=== PATIENT | female | born 1965 | race Caucasian/White ===

== ENCOUNTER 2019-01-10 13:21 | Outpatient (CLI) | payer BC ==
--- NOTE | 2019-01-10 15:45 | ULT ---
ULTRASOUND THYROID: HISTORY: Thyroid nodule: COMPARISON: None. FINDINGS: Real-time, johnson scale, and color evaluation of the thyroid was performed. The isthmus measures 3 mm in AP dimension. The right lobe measures 4.9 x 2 x 1.6 cm. The left lobe measures 5.1 x 1.8 x 1.4 c m. There are colloid cysts in both lobes of the thyroid. No suspicious nodule. IMPRESSION: Bilateral colloid cysts. No suspicious nodule. POS: [facility]
--- NOTE | 2019-01-11 08:43 | MMO ---
BILATERAL MAMMOGRAMS: HISTORY: Screening mammography. COMPARISON: 10/30/2015 and 09/04/2014 FINDINGS: Heterogeneously dense fibroglandular tissue. Within the mid lateral aspect of the right breast, a pa rtially obscured, oval, isodense mass measures up to 1.5 x 1.3 cm in greatest diameter on today's manuel dy and has enlarged since the previous studies. No other new dominant mass or suspicious calcificati ons. The study was evaluated with the assistance of computer aided detection. IMPRESSION: BI-RADS Category 0-Incomplete exam. Further imaging evaluation needed. The patient will be recalled for additional diagnostic views of t he right breast. Sonogram should also be scheduled for better evaluation. POS: [facility]
== END 2019-01-10 13:22 | disposition home or self-care (01) ==
LOC: SCSMAMMO 13:21
PROVIDERS: ATTEND Family Medicine
DX: Z12.31 Encounter for screening mammogram for malignant neoplasm of breast (principal); E04.1 Nontoxic single thyroid nodule
CPT/HCPCS: 76536; 77067

== ENCOUNTER 2019-03-16 14:04 | Outpatient (CLI) | payer BC ==
--- NOTE | 2019-03-16 15:14 | MMO ---
Right Breast MAMMO Unilat Diag DDI RT+ELIZABET. CLINICAL HISTORY: Patient is 53 years old and is seen for diagnostic exam. The patient has the following family history of breast cancer: mother, at age 50. VIEWS: The views performed were: . FILMS COMPARED: The present examination has been compared to prior imaging studies performed at [facility] on 01/10/2019, and at [facility] on 03/16/2019. MAMMOGRAM FINDINGS: There are scattered fibroglandular densities. Mass in the right breast likely corresponds to a portion of the cystic area on US. There are no suspicious masses, suspicious calcifications, or new areas of architectural distortion. IMPRESSION: THERE IS NO MAMMOGRAPHIC EVIDENCE OF MALIGNANCY. A ROUTINE FOLLOW-UP MAMMOGRAM IN 1 YEAR IS RECOMMENDED. THE RESULTS OF THIS EXAM WERE SENT TO THE PATIENT. ACR BI-RADS Category 2 - Benign finding MAMMOGRAPHY NOTE: 1. A negative mammogram report should not delay a biopsy if a dominant of clinically suspicious mass is present. 2. Approximately 10% to 15% of breast cancers are not detected by mammography. 3. Adenosis and dense breasts may obscure an underlying neoplasm.
--- NOTE | 2019-03-16 15:18 | ULT ---
RIGHT BREAST ULTRASOUND: HISTORY: Abnormal mammogram. CORRELATION: Mammograms from today and 01/10/2019. FINDINGS: Sonographic evaluation of the inner right breast demonstrates a tubular fluid collection/cyst, measur ing about 2 cm in largest dimension. A smaller adjacent cyst is seen. There is a tiny, echogenic fo cus, likely corresponding with calcifications seen on the mammogram. IMPRESSION: BI-RADS category 2-Benign findings. Return to annual mammographic screening. POS: OFF
== END 2019-03-16 14:05 | disposition home or self-care (01) ==
LOC: BICMAMMO 14:04
PROVIDERS: ATTEND Family Medicine
DX: N63.10 Unspecified lump in the right breast, unspecified quadrant (principal); Z80.3 Family history of malignant neoplasm of breast
CPT/HCPCS: G0279

== ENCOUNTER 2023-03-06 09:38 | Outpatient (CLI) | payer OTHER | END 2023-03-06 09:39 | disposition home or self-care (01) | LOC: TBSIIMAG 09:38 | PROVIDERS: ATTEND Neurological Surgery | DX: M47.26 Other spondylosis with radiculopathy, lumbar region (principal); M48.07 Spinal stenosis, lumbosacral region | CPT/HCPCS: 72110; 72148 ==

== ENCOUNTER 2025-10-20 19:09 | Inpatient (IN) | payer BC ==
[~2025-10-20 19:09] MED LIST: Iopamidol 370 76% 100 ML VIAL ONE
[2025-10-20 19:37] LABS: #Basophils 0.04 10x3/uL (0.0-0.2); #Eosinophils 0.03 10x3/uL (0.0-0.7); #Monocytes 0.73 10x3/uL (0.11-0.59); #Neutrophils 5.10 10x3/uL (1.40-6.50); %Basophils 0.5 % (0.0-1.0); %Eosinophils 0.4 % (0.0-10.0); %Lymphocytes 24.3 % (21.0-51.0); %Monocytes 9.3 % (0.0-10.0); %Neutrophils 65.2 % (42.0-75.0); Hematocrit 45.3 % (36.0-47.0); Hemoglobin 14.4 g/dL (12.0-16.0); Mean Corpuscular Hemoglobin 24.4 pg (27.0-31.0); Mean Corpuscular Volume 76.9 fL (78.0-98.0); Platelet Count 221 10x3/uL (130-400); Red Blood Cell (RBC) Count 5.89 mill/uL (4.20-5.40); White Blood Cell (WBC) Count 7.82 10x3/uL (4.8-10.8)
[2025-10-20] MEDS ORDERED: Ondansetron PF 4 MG/2 ML Vial ONE (19:41)
[2025-10-20] MEDS ORDERED: Droperidol 5 MG/2 ML VIAL ONE (19:49)
[2025-10-20 20:02] LABS: ALT (SGPT) 37 U/L (Less than 34); AST (SGOT) 44 U/L (11-34); Albumin 5.0 g/dL (3.1-4.5); Alkaline Phosphatase 96 U/L (40-110); Anion Gap 28 mmol/L (10-20); BUN (Urea Nitrogen) 11 mg/dL (9.8-20.1); Bilirubin, Total 0.8 mg/dL (0.3-1.2); Calc. Creatinine Clearance 0 mL/min (70-130); Calcium 10.8 mg/dL (7.8-10.44); Carbon Dioxide 13 mmol/L (22-29); Chloride 103 mmol/L (98-107); Globulin 3.2 g/dL (2.4-3.5); Glucose 107 mg/dL (70-105); Lipase 17 U/L (8-78); Magnesium 1.8 mg/dL (1.6-2.6); Potassium 4.0 mmol/L (3.5-5.1); Sodium 140 mmol/L (136-145)
[2025-10-20] MEDS ORDERED: Famotidine/PF 20 mg/2ml Vial ONE (22:10)
[2025-10-20 22:49] LABS: Actual Bicarbonate (HCO3v) 15.1 mEq/L (22-28); Analyzer IN Cardio ER; Base Excess -9.7 mEq/L (-2.0 to +3.0); Calcium, Ionized (venous) 1.19 mmol/L (1.16-1.32); Chloride (VBG) 102 mmol/L (98-106); Hematocrit-VBG 44 % (36.0-47.0); Hemoglobin (Hb) 15.1 g/dL (11.7-16.0); Potassium (VBG) 5.15 mmol/L (3.70-5.30); Sodium 141 mmol/L (133-146)
[2025-10-21] MEDS ORDERED: Droperidol 5 MG/2 ML VIAL ONE (00:39)
[2025-10-21 01:24] LABS: Bacteria/HPF None Seen HPF (None Seen); CAUTI Indications for Culture Alt mental st,lethar; Glucose, Urine (Dipstick) Normal (Negative); Leukocyte Negative Leu/uL (Negative); Protein, Urine (Dipstick) 50 mg/dL (Neg-Trace); WBC/HPF 0-3 HPF (0-3)
[2025-10-21 01:26] LABS: Urine Culture Reflex No No
[2025-10-21 01:55] LABS: Specific Gravity, Urine Greater than 1.050 (1.002-1.036)
[2025-10-21] MEDS ORDERED: Glucagon 1 MG/ML KIT IM PRN (01:55)
[2025-10-21] MEDS ORDERED: Dextrose 50% Abboject 50 ML SYRINGE SLOW IVP PRN (01:55)
[2025-10-21] MEDS: Pantoprazole 40 MG VIAL IVP SCH (04:27)
[2025-10-21 04:32] VITALS: BMI 29.8
[2025-10-21 07:34] LABS: Albumin 4.6 g/dL (3.1-4.5); Chloride 108 mmol/L (98-107); Potassium 4.6 mmol/L (3.5-5.1); Sodium 140 mmol/L (136-145)
[2025-10-21 07:35] LABS: Calcium 9.9 mg/dL (7.8-10.44); Glucose 89 mg/dL (70-105)
[2025-10-21 07:36] LABS: Globulin 3.0 g/dL (2.4-3.5); Hematocrit 46.6 % (36.0-47.0); Hemoglobin 14.1 g/dL (12.0-16.0); Mean Corpuscular Hemoglobin 25.0 pg (27.0-31.0); Mean Corpuscular Volume 82.5 fL (78.0-98.0); Platelet Count 117 10x3/uL (130-400); Red Blood Cell (RBC) Count 5.65 mill/uL (4.20-5.40); White Blood Cell (WBC) Count 7.19 10x3/uL (4.8-10.8)
[2025-10-21 07:37] LABS: Anion Gap 27 mmol/L (10-20); Carbon Dioxide 10 mmol/L (22-29)
[2025-10-21 07:38] LABS: Alkaline Phosphatase 90 U/L (40-110); Bilirubin, Total 0.7 mg/dL (0.3-1.2)
[2025-10-21 07:39] LABS: BUN (Urea Nitrogen) 8 mg/dL (9.8-20.1); Calc. Creatinine Clearance 97 mL/min (70-130)
[2025-10-21 07:41] LABS: ALT (SGPT) 40 U/L (Less than 34); AST (SGOT) 54 U/L (11-34)
[2025-10-21] MEDS: Enoxaparin 40 MG (0.4 mL) SYRINGE SC SCH (08:38)
[2025-10-21] MEDS: Magnesium 2 GM/50 ML(in water) 2 GM in Premix 1 BAG IVPB SCH (08:38)
[2025-10-21 08:45] LABS: Burr Cells SLIGHT = 2-5 cells HPF (0-1); Ovalocytes SLIGHT = 2-5 cells HPF (0-1); Platelet Adequacy Comment Platelets Normal
[2025-10-21] MEDS ORDERED: Non-Formulary Item 1 EACH (Oxycodone Hcl/Acetaminophen [Percocet] 10 MG/325 MG Tablet) PO PRN (09:22)
[2025-10-21] MEDS ORDERED: Non-Formulary Item 1 EACH (Pregabalin [Lyrica] 300 MG Capsule) PO SCH (09:30)
[2025-10-21] MEDS ORDERED: Sodium Bicarbonate Tab 325 MG TAB PO SCH ×2 (09:30→15:00)
[2025-10-21] MEDS ORDERED: oxyCODONE/Acetaminophen 5 mg/325 mg Tablet PO PRN (09:40)
[2025-10-21] MEDS: Sodium Bicarb 50 MEQ/50 ML Abboject 8.4% SYRINGE IVP SCH (10:17)
[2025-10-21] MEDS: Insulin Glargine 30 UNITS/0.3 ML VIAL SC SCH (10:17)
[2025-10-21] MEDS: cloNIDine 0.1 MG TAB PO SCH ×2 (10:17→22:15)
[2025-10-21] MEDS: Potassium Bicarbonate/Cit Ac 20 MEQ TAB PO SCH ×2 (10:19→12:40)
[2025-10-21] MEDS: Verapamil 180 MG ER.TAB PO SCH (10:32)
[2025-10-21 11:03] LABS: Anion Gap 23 mmol/L (10-20); BUN (Urea Nitrogen) 8 mg/dL (9.8-20.1); Calc. Creatinine Clearance 97 mL/min (70-130); Calcium 9.7 mg/dL (7.8-10.44); Carbon Dioxide 15 mmol/L (22-29); Chloride 106 mmol/L (98-107); Glucose 99 mg/dL (70-105); Potassium 4.3 mmol/L (3.5-5.1); Sodium 140 mmol/L (136-145)
[2025-10-21 11:34] LABS: Actual Bicarbonate (HCO3v) 15.3 mEq/L (22-28); Base Excess -6.4 mEq/L (-2.0 to +3.0); Calcium, Ionized (venous) 1.03 mmol/L (1.16-1.32); Chloride (VBG) 105 mmol/L (98-106); Hematocrit-VBG 42 % (36.0-47.0); Hemoglobin (Hb) 14.2 g/dL (11.7-16.0); Potassium (VBG) 4.39 mmol/L (3.70-5.30); Sodium 140 mmol/L (133-146)
[2025-10-21 15:54] LABS: Anion Gap 19 mmol/L (10-20); BUN (Urea Nitrogen) 7 mg/dL (9.8-20.1); Calc. Creatinine Clearance 115 mL/min (70-130); Calcium 9.2 mg/dL (7.8-10.44); Carbon Dioxide 21 mmol/L (22-29); Chloride 104 mmol/L (98-107); Glucose 115 mg/dL (70-105); Potassium 3.5 mmol/L (3.5-5.1); Sodium 140 mmol/L (136-145)
[2025-10-21] MEDS: D5 1/2 NS w/20 mEq KCL 1,000 ML IV SCH (17:48)
[2025-10-21] MEDS ORDERED: Non-Formulary Item 1 EACH (Zolpidem Tartrate [Zolpidem Tartrate] 10 MG Tablet) PO SCH (21:00)
[2025-10-21 22:13] LABS: Anion Gap 19 mmol/L (10-20); BUN (Urea Nitrogen) 7 mg/dL (9.8-20.1); Calc. Creatinine Clearance 115 mL/min (70-130); Calcium 9.3 mg/dL (7.8-10.44); Carbon Dioxide 23 mmol/L (22-29); Chloride 103 mmol/L (98-107); Glucose 124 mg/dL (70-105); Potassium 3.2 mmol/L (3.5-5.1); Sodium 142 mmol/L (136-145)
[2025-10-22] MEDS: levETIRAcetam 500 MG TAB PO SCH (08:01)
[2025-10-22] MEDS: Calcitriol 0.25 MCG CAP PO SCH (08:01)
[2025-10-22] MEDS: Verapamil 240 MG SR.TAB PO SCH (08:10)
[2025-10-22] MEDS ORDERED: VERAPAMIL HCL 240 MG PO SCH (09:00)
[2025-10-22 10:21] LABS: ALT (SGPT) 37 U/L (Less than 34); AST (SGOT) 53 U/L (11-34); Albumin 3.9 g/dL (3.1-4.5); Alkaline Phosphatase 74 U/L (40-110); Anion Gap 17 mmol/L (10-20); BUN (Urea Nitrogen) 5 mg/dL (9.8-20.1); Bilirubin, Total 0.7 mg/dL (0.3-1.2); Calc. Creatinine Clearance 115 mL/min (70-130); Calcium 9.3 mg/dL (7.8-10.44); Carbon Dioxide 23 mmol/L (22-29); Chloride 108 mmol/L (98-107); Globulin 2.3 g/dL (2.4-3.5); Glucose 112 mg/dL (70-105); Magnesium 2.1 mg/dL (1.6-2.6); Potassium 3.9 mmol/L (3.5-5.1); Sodium 144 mmol/L (136-145)
[2025-10-22 11:14] LABS: #Basophils 0.03 10x3/uL (0.0-0.2); #Eosinophils Less than 0.03 10x3/uL (0.0-0.7); #Monocytes 0.49 10x3/uL (0.11-0.59); #Neutrophils 1.72 10x3/uL (1.40-6.50); %Basophils 0.7 % (0.0-1.0); %Eosinophils 0.5 % (0.0-10.0); %Lymphocytes 44.1 % (21.0-51.0); %Monocytes 12.1 % (0.0-10.0); %Neutrophils 42.4 % (42.0-75.0); Hematocrit 33.9 % (36.0-47.0); Hemoglobin 10.8 g/dL (12.0-16.0); Mean Corpuscular Hemoglobin 24.8 pg (27.0-31.0); Mean Corpuscular Volume 77.9 fL (78.0-98.0); Platelet Count 155 10x3/uL (130-400); Red Blood Cell (RBC) Count 4.35 mill/uL (4.20-5.40); White Blood Cell (WBC) Count 4.06 10x3/uL (4.8-10.8)
[2025-10-22 15:28] VITALS: BP 114/75; TEMP 97.7
== END 2025-10-22 16:33 | disposition home or self-care (01) | DRG 641 ==
LOC: ERS 19:09 → T4-B 10-21 01:52 → 2NO 10-21 12:43
PROVIDERS: ADMIT Internal Medicine; ATTEND Internal Medicine
DX: E87.20 Acidosis, unspecified (principal); R10.84 Generalized abdominal pain; E88.89 Other specified metabolic disorders; I10 Essential (primary) hypertension; F41.9 Anxiety disorder, unspecified; Z86.73 Personal history of transient ischemic attack (TIA), and cerebral infarction without residual deficits; Z87.891 Personal history of nicotine dependence; K82.8 Other specified diseases of gallbladder; R79.89 Other specified abnormal findings of blood chemistry; Z88.8 Allergy status to other drugs, medicaments and biological substances; Z98.890 Other specified postprocedural states; Z85.820 Personal history of malignant melanoma of skin; E11.9 Type 2 diabetes mellitus without complications; R25.1 Tremor, unspecified; G89.4 Chronic pain syndrome; G40.909 Epilepsy, unspecified, not intractable, without status epilepticus; F51.04 Psychophysiologic insomnia; I95.89 Other hypotension; M54.9 Dorsalgia, unspecified; E66.811 Obesity, class 1; R00.0 Tachycardia, unspecified; Z79.899 Other long term (current) drug therapy; Z68.30 Body mass index [BMI] 30.0-30.9, adult; Z90.710 Acquired absence of both cervix and uterus; R11.2 Nausea with vomiting, unspecified; E86.0 Dehydration
CPT/HCPCS: 36415; 36416; 71045; 71275; 74177; 76705; 80053; 81001; 82010; 82805; 83605; 83690; 83735; 83880; 84100; 84484; 85025; 93005; 93010; 96361; 96374; 96375; 96376; J1308; J1650; J1790; J1815; J2060; J2405; J2470; J3010; J3475; J3480; J7070; J7120; Q9967